=== PATIENT | male | born 1985 | race Caucasian/White ===

== ENCOUNTER 2016-10-19 06:14 | Emergency (ER) | payer BC, OTHER ==
[2016-10-19 06:19] VITALS: BP 135/89; PULSE 83; RESP 16; TEMP 98.6
[2016-10-19] MEDS ORDERED: PROPARACAINE 0.5% OPHTH DROPS 15 ML BTL ONE (06:21)
[2016-10-19] MEDS ORDERED: TOBRAMYCIN 0.3% OPHTH OINT 3.5 GM TUBE RIGHT EYE STA (06:31)
--- NOTE | 2016-10-19 06:31 | ED ---
General Adult HPI - General Chief complaint: ENT Stated complaint: Foreign body in eye, [facility] Time Seen by Provider: 10/19/16 06:15 Source: patient, RN notes reviewed Mode of arrival: ambulatory Limitations: no limitations - History of Present Illness Initial comments: This is a 31-year-old male presents to the emergency department complaining that he thinks she is form body in his right eye. Patient states at work he was blown off some equipment a felt something go into his right eye. Patient states she rinsed it for quite a long time but even after hours after rinsing if he continued to feel something in his right eye. Patient denies any blurred vision. Patient denies any direct trauma. - Related Data Home Medications Medication Instructions Recorded Confirmed No Known Home Medications [No 01/27/16 10/19/16 Known Home Medications] Allergies Allergy/AdvReac Type Severity Reaction Status Date / Time No Known Allergies Allergy Verified 10/19/16 06:18 Review of Systems ROS Statement: Those systems with pertinent positive or pertinent negative responses have been documented in the HPI. ROS Other: All systems not noted in ROS Statement are negative. Past Medical History Past Medical History: Asthma History of Any Multi-Drug Resistant Organisms: None Reported Past Surgical History: No Surgical Hx Reported Past Psychological History: No Psychological Hx Reported Smoking Status: Current some day smoker Past Alcohol Use History: Occasional Past Drug Use History: None Reported General Exam - General Exam Comments Initial Comments: GENERAL Patient is well-developed and well-nourished. Patient is in mild distress. EYES Patient's pupils are equal and round. Extraocular motion is intact. I used proparacaine and then fluorescein to check the patient's eyes I flip the eyelids did not see any foreign body. Did not see any corneal abrasion however there was a small black foreign body in the lower eyelid I removed fact with a Q -tip. SKIN Unremarkable NEURO The patient is alert and oriented 3 PYSCH Patient has normal interpersonal interactions. Limitations: no limitations Course Vital Signs 10/19/16 06:15 Temperature 98.6 F Pulse Rate 83 Respiratory 16 Rate Blood Pressure 135/89 O2 Sat by Pulse 94 L Oximetry Disposition Clinical Impression: Foreign body of right eye Disposition: HOME SELF-CARE Instructions: Eye Foreign Body (ED) Additional Instructions: Use tobramycin ophthalmic drops 4 times a day. If pain continues patient should follow-up with an coal pipeline operator Referrals: None,Stated [Primary Care Provider] - 1-2 days Time of Disposition: 06:30
== END 2016-10-19 06:54 | disposition home or self-care (01) ==
LOC: EC 06:14
DX: T15.11XA Foreign body in conjunctival sac, right eye, initial encounter (principal); F17.200 Nicotine dependence, unspecified, uncomplicated; Y93.89 Activity, other specified; Y99.0 Civilian activity done for income or pay; Y92.69 Other specified industrial and construction area as the place of occurrence of the external cause
CPT/HCPCS: 65205; 99283

== ENCOUNTER 2022-05-30 12:54 | Emergency (ER) | payer BC, OTHER ==
[2022-05-30 13:10] VITALS: BP 158/98; PULSE 79; RESP 18; TEMP 97.8
[2022-05-30] MEDS ORDERED: APIXABAN 5 MG TAB PO STA (13:14)
--- NOTE | 2022-05-30 13:18 | ED ---
Extremity Problem HPI - General Chief complaint: Extremity Problem,Nontraumatic Stated complaint: DVT/sent from lab Time Seen by Provider: 05/30/22 13:16 Source: patient, RN notes reviewed Mode of arrival: ambulatory Limitations: no limitations - History of Present Illness Initial comments: 36-year-old male presents emergency from chief complaint of left calf pain. Patient had X-Ray Showing Acute DVT. Patient States He's Had Some Discomfort Last Couple Weeks He Denies Any Chest Pain Shortness Breath or Exertional Shortness Breath Palpitations. Patient Has Meant That He Started to a Heavy Smoker He Denies Any Long Distance Traveling Denies Any Family History of Clotting Disorders. Patient Denies Significant Swelling States That There Is Mild Swelling or More Pain with Movement. - Related Data Previous Rx's Medication Instructions Recorded Apixaban [Eliquis Starter Pack 0 mg PO DIRECTED 30 Days #1 05/30/22 (for VTE)] packet Allergies Allergy/AdvReac Type Severity Reaction Status Date / Time No Known Allergies Allergy Verified 05/30/22 13:09 Review of Systems ROS Statement: Those systems with pertinent positive or pertinent negative responses have been documented in the HPI. ROS Other: All systems not noted in ROS Statement are negative. Past Medical History Past Medical History: Asthma History of Any Multi-Drug Resistant Organisms: None Reported Past Surgical History: No Surgical Hx Reported Past Psychological History: No Psychological Hx Reported Smoking Status: Current every day smoker Past Alcohol Use History: Rare Past Drug Use History: Marijuana General Exam Limitations: no limitations General appearance: alert, in no apparent distress Head exam: Present: atraumatic, normocephalic, normal inspection Eye exam: Present: normal appearance, PERRL, EOMI. Absent: scleral icterus, conjunctival injection, periorbital swelling ENT exam: Present: normal exam, normal oropharynx, mucous membranes moist Neck exam: Present: normal inspection. Absent: tenderness, meningismus, lymphadenopathy Respiratory exam: Present: normal lung sounds bilaterally. Absent: respiratory distress, wheezes, rales, rhonchi, stridor Cardiovascular Exam: Present: regular rate, normal rhythm, normal heart sounds. Absent: systolic murmur, diastolic murmur, rubs, gallop, clicks Extremities exam: Present: calf tenderness, other (Pulses are palpable lower extremity, mild swelling left) Course Vital Signs 05/30/22 13:07 Temperature 97.8 F Pulse Rate 79 Respiratory 18 Rate Blood Pressure 158/98 O2 Sat by Pulse 97 Oximetry Medical Decision Making - Medical Decision Making Was pt. sent in by a medical professional or institution (, BRENDAN, RN RECRUITMENT, urgent care, hospital, or [facility]...) When possible be specific @ -PCP Did you speak to anyone other than the patient for history (EMS, parent, family, police, friend...)? What history was obtained from this source @ -[No] Did you review nursing and triage notes (agree or disagree)? Why? @ -[I reviewed and agree with nursing and triage notes] Were old charts reviewed (outside hosp., previous admission, EMS record, old EKG, old radiological studies, urgent care reports/EKG's, [facility] records)? Report findings @ -[No old charts were reviewed] Differential Diagnosis (chest pain, altered mental status, abdominal pain women, abdominal pain men, vaginal bleeding, weakness, fever, dyspnea, syncope, headache, dizziness, GI bleed, back pain, seizure, CVA, palpatations, mental health)? @ -DVT, superficial thrombophlebitis, calf Strain, this list is not all- inclusive EKG interpreted by me (3pts min.). @ -[None] X-rays interpreted by me (1pt min.). @ -[None done] CT interpreted by me (1pt min.). @ -[None done] U/S interpreted by me (1pt. min.). @ -Ultrasound venous Doppler left lower extremity shows proximal calf and popliteal DVT What testing was considered but not performed or refused? (CT, X-rays, U/S, labs)? Why? @ -Considered CT of the chest the patient has no complaints of chest pain shortness breath palpitations, tachycardia or hypoxia What meds were considered but not given or refused? Why? @ -[None] Did you discuss the management of the patient with other professionals (professionals i.e. , BRENDAN, RN RECRUITMENT, lab, RT, psych nurse, delinquency prevention social worker, auto motor mechanic, teacher, traffic maintenance officer, case resource manager)? Give summary @ -[No] Was smoking cessation discussed for >3mins.? @ -I discussed smoking cessation for greater than 3 minutes. The risk of smoking were discussed with the patient including but not limited to risks of cancer, stroke, coronary artery disease and COPD. Also discussed with patient were multiple methods of quitting smoking. Lastly we discussed the financial cost of smoking. Was critical care preformed (if so, how long)? @ -[No] Were there social determinants of health that impacted care today? How? (Homelessness, low income, unemployed, alcoholism, drug addiction, transportation, low edu. Level, literacy, decrease access to med. care, half-way, rehab)? @ -[No] Was there de-escalation of care discussed even if they declined (Discuss DNR or withdrawal of care, Hospice)? DNR status @ -[No] What co-morbidities impacted this encounter? (DM, HTN, Smoking, COPD, CAD, Cancer, CVA, ARF, Chemo, Hep., AIDS, mental health diagnosis, sleep apnea, morbid obesity)? @ -[Smoking] Was patient admitted / discharged? Hospital course, mention meds given and route, prescriptions, significant lab abnormalities, going to OR and other pertinent info. @ -Discharged - patient has evidence of DVT the popliteal region patient started L course he has no chest complaints we did have a long discussion regarding his symptoms, return parameters including injury been on for better he is advised follow-up PCP and hematology. Patient and family agree to plan. Undiagnosed new problem with uncertain prognosis? @ -[yes] Drug Therapy requiring intensive monitoring for toxicity (Heparin, Nitro, Insulin, Cardizem)? @ -[No] Were any procedures done? @ -[No] Diagnosis/symptom? @ -Left leg DVT Acute, or Chronic, or Acute on Chronic? @ -acute Uncomplicated (without systemic symptoms) or Complicated (systemic symptoms)? @ -uncomplicated Side effects of treatment? @ -bleeding Exacerbation, Progression, or Severe Exacerbation? @ -[No] Poses a threat to life or bodily function? How? (Chest pain, USA, PA, pneumonia, PE, COPD, DKA, ARF, appy, cholecystitis, CVA, Diverticulitis, Homicidal, Suicidal, threat to staff... and all critical care pts) @ -yes patient has DVT with always probability of PE or further injury. Disposition Clinical Impression: Deep vein thrombosis (DVT) of upper extremity Disposition: HOME SELF-CARE Condition: Stable Instructions (If sedation given, give patient instructions): Deep Vein Thrombosis (ED) Additional Instructions: Please return to the Emergency Department if symptoms worsen or any other concerns. Prescriptions: Apixaban [Eliquis Starter Pack (for VTE)] 0 mg PO DIRECTED 30 Days #1 packet Is patient prescribed a controlled substance at d/c from ED?: No Referrals: Lashanda Stinson MD [Primary Care Provider] - 1-2 days Kieran Stroud MD [STAFF PHYSICIAN] - 1-2 days Time of Disposition: 13:17
== END 2022-05-30 13:53 | disposition home or self-care (01) ==
LOC: EC 12:54
DX: I82.622 Acute embolism and thrombosis of deep veins of left upper extremity (principal); J45.909 Unspecified asthma, uncomplicated; F17.200 Nicotine dependence, unspecified, uncomplicated; F12.90 Cannabis use, unspecified, uncomplicated
CPT/HCPCS: 99282

== ENCOUNTER → 2022-05-30 | Outpatient (CLI) | payer BC ==
--- NOTE | 2022-05-30 12:53 | US ---
EXAMINATION TYPE: US venous doppler duplex LE RT DATE OF EXAM: 05/30/2022 12:38 PM COMPARISON: NONE CLINICAL HISTORY: M79.661 Pain in right leg R22.41 Swelling RLE. 3 weeks of increasing right calf rodolfo n and swelling, no previous dvt SIDE PERFORMED: right TECHNIQUE: The lower extremity deep venous system is examined utilizing real time linear array sonog latia with graded compression, doppler sonography and color-flow sonography. VESSELS IMAGED: Common Femoral Vein Deep Femoral Vein Greater Saphenous Vein * Femoral Vein Popliteal Vein Small Saphenous Vein * Proximal Calf Veins (* superficial vessels) Right Leg: Hyperechoic thrombosis in the right pop vein from mid to prox calf. Results called to office and given to Adriana at the time of the exam. Per office the patient was direct ed to the ER for follow up care. IMPRESSION: Right popliteal vein deep vein thrombosis extending to the calf vessels.
== END | disposition home or self-care (01) ==
LOC: RADUSWWP 11:54
PROVIDERS: ATTEND Internal Medicine
DX: R22.41 Localized swelling, mass and lump, right lower limb (principal); M79.661 Pain in right lower leg; I82.431 Acute embolism and thrombosis of right popliteal vein

== ENCOUNTER → 2022-09-28 | Outpatient (CLI) | payer OTHER ==
--- NOTE | 2022-09-28 11:36 | US ---
EXAMINATION TYPE: US venous doppler duplex LE BI DATE OF EXAM: 09/28/2022 11:17 AM COMPARISON: Right lower extremity venous ultrasound May 30, 2022 CLINICAL INDICATION: Male, 37 years old with history of I82.5Z9 DEEP VEIN THROMBOSIS OF LOWER EXTREMI TIES; Pt states leg pain, pt has h/o DVT right leg in May, currently not on blood thinners SIDE PERFORMED: Bilateral TECHNIQUE: The lower extremity deep venous system is examined utilizing real time linear array sonog latia with graded compression, doppler sonography and color-flow sonography. VESSELS IMAGED: Common Femoral Vein Deep Femoral Vein Greater Saphenous Vein * Femoral Vein Popliteal Vein Small Saphenous Vein * Proximal Calf Veins (* superficial vessels) Right Leg: Negative for DVT, prior DVT appeared resolved Left Leg: Negative for DVT Grayscale, color doppler, spectral doppler imaging performed of the deep veins of the bilateral lower extremities. There is normal flow, compressibility, vascular waveforms on today's study. IMPRESSION: No acute DVT on today's study in either lower extremity.
== END | disposition home or self-care (01) ==
LOC: RADUSWWP 10:49
PROVIDERS: ATTEND Internal Medicine Hematology & Oncology
DX: I82.5Z9 Chronic embolism and thrombosis of unspecified deep veins of unspecified distal lower extremity (principal)
CPT/HCPCS: 93970

== ENCOUNTER 2023-07-19 04:08 | Emergency (ER) | payer OTHER ==
[2023-07-19 04:30] VITALS: TEMP 97.4
--- NOTE | 2023-07-19 04:49 | ED ---
General Adult HPI - General Source: patient, EMS Mode of arrival: EMS Limitations: no limitations <Ruthie Campbell - Last Filed: 07/19/23 06:20> <Juarez Kelly - Last Filed: 07/19/23 08:37> - General Chief complaint: Extremity Injury, Lower Stated complaint: Poss DVT Time Seen by Provider: 07/19/23 04:17 - History of Present Illness Initial comments: 37-year-old male presenting to the ER via EMS from senior care. Patient reports a history of DVT that was believed to be provoked by COVID. Patient reports has been off anticoagulation for about 6 months. Patient reports he is felt pressure and pinching in his right lower extremity that similar to previous DVT. He is noted that this leg is swollen. (Ruthie Campbell) - Related Data Previous Rx's Medication Instructions Recorded Apixaban [Eliquis Starter Pack 0 mg PO DIRECTED 30 Days #1 05/30/22 (for VTE)] packet Allergies Allergy/AdvReac Type Severity Reaction Status Date / Time No Known Allergies Allergy Verified 05/30/22 13:09 Review of Systems ROS Other: All systems not noted in ROS Statement are negative. <Ruthie Campbell - Last Filed: 07/19/23 06:20> ROS Other: All systems not noted in ROS Statement are negative. <Juarez Kelly - Last Filed: 07/19/23 08:37> ROS Statement: Those systems with pertinent positive or pertinent negative responses have been documented in the HPI. Past Medical History Past Medical History: Asthma, Deep Vein Thrombosis (DVT), Hypertension History of Any Multi-Drug Resistant Organisms: None Reported Past Surgical History: No Surgical Hx Reported Past Psychological History: No Psychological Hx Reported Smoking Status: Current every day smoker Past Alcohol Use History: Rare Past Drug Use History: Marijuana <Ruthie Campbell - Last Filed: 07/19/23 06:20> General Exam Limitations: no limitations Head exam: Present: atraumatic Eye exam: Present: normal appearance, PERRL ENT exam: Present: normal exam Neck exam: Present: normal inspection Respiratory exam: Absent: respiratory distress Cardiovascular Exam: Present: regular rate, tachycardia GI/Abdominal exam: Present: soft. Absent: distended Rectal exam: Present: deferred Extremities exam: Present: full ROM, normal capillary refill, calf tenderness. Absent: pedal edema Back exam: Present: full ROM Neurological exam: Present: alert, oriented X3 Psychiatric exam: Present: normal affect Skin exam: Present: warm, dry <Ruthie Campbell - Last Filed: 07/19/23 06:20> Course Vital Signs 07/19/23 07/19/23 07/19/23 04:09 04:14 05:31 Temperature 97.4 F L Pulse Rate 115 H 116 H 97 Respiratory 20 16 20 Rate Blood Pressure 146/90 146/90 137/93 O2 Sat by Pulse 100 94 L 94 L Oximetry 07/19/23 07/19/23 06:31 08:00 Temperature Pulse Rate 103 H 95 Respiratory 20 18 Rate Blood Pressure 132/89 129/87 O2 Sat by Pulse 95 92 L Oximetry Medical Decision Making - Lab Data Result diagrams: 07/19/23 04:53 07/19/23 04:53 <Ruthie Campbell - Last Filed: 07/19/23 06:20> - Lab Data Result diagrams: 07/19/23 04:53 07/19/23 04:53 <Juarez Kelly - Last Filed: 07/19/23 08:37> - Medical Decision Making Was pt. sent in by a medical professional or institution (, PA, ROLE PLAYER, urgent care, hospital, or long term...) When possible be specific @ -[No] Did you speak to anyone other than the patient for history (EMS, parent, family, police, friend...)? What history was obtained from this source @ -fare enforcement officer at bedside Did you review nursing and triage notes (agree or disagree)? Why? @ -[I reviewed and agree with nursing and triage notes] Were old charts reviewed (outside hosp., previous admission, EMS record, old EKG, old radiological studies, urgent care reports/EKG's, long term records)? Report findings @ -[No old charts were reviewed] Differential Diagnosis (chest pain, altered mental status, abdominal pain women, abdominal pain men, vaginal bleeding, weakness, fever, dyspnea, syncope, headache, dizziness, GI bleed, back pain, seizure, CVA, palpatations, mental health)? @ -Differential includes DVT, cellulitis, dependent edema EKG interpreted by me (3pts min.). @ -[As above] X-rays interpreted by me (1pt min.). @ -[None done] CT interpreted by me (1pt min.). @ -[None done] U/S interpreted by me (1pt. min.). @ -[None done] What testing was considered but not performed or refused? (CT, X-rays, U/S, labs)? Why? @ -[None] What meds were considered but not given or refused? Why? @ -[None] Did you discuss the management of the patient with other professionals (professionals i.e. , PA, ROLE PLAYER, lab, RT, psych nurse, adoption social worker, audioprosthologist, teacher, boat officer, case management coordinator)? Give summary @ -[No] Was smoking cessation discussed for >3mins.? @ -[No] Was critical care preformed (if so, how long)? @ -[No] Were there social determinants of health that impacted care today? How? ( Homelessness, low income, unemployed, alcoholism, drug addiction, transportation, low edu. Level, literacy, decrease access to med. care, senior care, rehab)? @ -[No] Was there de-escalation of care discussed even if they declined (Discuss DNR or withdrawal of care, Hospice)? DNR status @ -[No] What co-morbidities impacted this encounter? (DM, HTN, Smoking, COPD, CAD, Cancer, CVA, ARF, Chemo, Hep., AIDS, mental health diagnosis, sleep apnea, morbid obesity)? @ -[None] Was patient admitted / discharged? Hospital course, mention meds given and route, prescriptions, significant lab abnormalities, going to OR and other pertinent info. @ -[hospital course] Undiagnosed new problem with uncertain prognosis? @ -[No] Drug Therapy requiring intensive monitoring for toxicity (Heparin, Nitro, Insulin, Cardizem)? @ -[No] Were any procedures done? @ -[No] Diagnosis/symptom? @ -[default] Acute, or Chronic, or Acute on Chronic? @ -[default] Uncomplicated (without systemic symptoms) or Complicated (systemic symptoms)? @ -[default] Side effects of treatment? @ -[No] Exacerbation, Progression, or Severe Exacerbation? @ -[No] Poses a threat to life or bodily function? How? (Chest pain, USA, CT, pneumonia, PE, COPD, DKA, ARF, appy, cholecystitis, CVA, Diverticulitis, Homicidal, Suicidal, threat to staff... and all critical care pts) @ -[No] (Ruthie Campbell) Ultrasound interpreted by myself without evidence of DVT. Patient reevaluated and updated. Patient will be discharged and recommend follow-up with primary care physician. Diagnosis: Leg pain, acute (Juarez Kelly) - Lab Data Lab Results 07/19/23 07/19/23 07/19/23 Range/Units 04:53 04:53 04:53 WBC 13.3 H (3.8-10.6) k/uL RBC 5.16 (4.30-5.90) m/uL Hgb 15.4 (13.0-17.5) gm/dL Hct 44.1 (39.0-53.0) % MCV 85.4 (80.0-100.0) fL MCH 29.8 (25.0-35.0) pg MCHC 34.9 (31.0-37.0) g/dL RDW 12.7 (11.5-15.5) % Plt Count 211 (150-450) k/uL MPV 8.4 Neutrophils % 76 % Lymphocytes % 19 % Monocytes % 4 % Eosinophils % 0 % Basophils % 1 % Neutrophils # 10.0 H (1.3-7.7) k/uL Lymphocytes # 2.5 (1.0-4.8) k/uL Monocytes # 0.6 (0-1.0) k/uL Eosinophils # 0.0 (0-0.7) k/uL Basophils # 0.1 (0-0.2) k/uL D-Dimer 0.30 (<0.60) mg/L FEU Sodium 141 (137-145) mmol/L Potassium 4.1 (3.5-5.1) mmol/L Chloride 108 H (98-107) mmol/L Carbon Dioxide 18 L (22-30) mmol/L Anion Gap 15 mmol/L BUN 12 (9-20) mg/dL Creatinine 1.16 (0.66-1.25) mg/dL Est GFR (CKD-EPI)AfAm >90 (>60 ml/min/1.73 sqM) Est GFR (CKD-EPI)NonAf 81 (>60 ml/min/1.73 sqM) Glucose 135 H (74-99) mg/dL Calcium 9.1 (8.4-10.2) mg/dL Total Bilirubin 0.5 (0.2-1.3) mg/dL AST 44 (17-59) U/L ALT 47 (4-49) U/L Alkaline Phosphatase 72 (38-126) U/L Total Protein 7.8 (6.3-8.2) g/dL Albumin 4.8 (3.5-5.0) g/dL Disposition <Ruthie Campbell - Last Filed: 07/19/23 06:20> Is patient prescribed a controlled substance at d/c from ED?: No Time of Disposition: 08:37 <Juarez Kelly - Last Filed: 07/19/23 08:37> Clinical Impression: Leg pain Disposition: HOME SELF-CARE Condition: Stable Instructions (If sedation given, give patient instructions): Leg Pain (ED) Additional Instructions: [id number] Tylenol or Motrin as needed. Please follow-up with primary care physician in the next day or 2 for recheck. Return for increased pain, swelling, worsening or changing symptoms or other concerns. Referrals: Saji Morse MD [STAFF PHYSICIAN] - 1-2 days
[2023-07-19 04:59] LABS: Basophils # (A) 0.1 k/uL (0-0.2); Basophils % (A) 1 %; Eosinophils % (A) 0 %; HCT 44.1 % (39.0-53.0); HGB 15.4 gm/dL (13.0-17.5); Lymphocytes # (A) 2.5 k/uL (1.0-4.8); Lymphocytes % (A) 19 %; MCH 29.8 pg (25.0-35.0); MCHC 34.9 g/dL (31.0-37.0); MCV 85.4 fL (80.0-100.0); Mean Platelet Volume 8.4; Monocytes # (A) 0.6 k/uL (0-1.0); Monocytes % (A) 4 %; Neutrophils % (A) 76 %; Platelet Count 211 k/uL (150-450); RBC 5.16 m/uL (4.30-5.90); RDW 12.7 % (11.5-15.5); WBC 13.3 k/uL (3.8-10.6)
[2023-07-19 05:08] LABS: ALT 47 U/L (4-49); AST 44 U/L (17-59); African American GFR (CKD) >90 (>60 ml/min/1.73 sqM); Albumin 4.8 g/dL (3.5-5.0); Alkaline Phosphatase 72 U/L (38-126); Anion Gap 15 mmol/L; Blood Urea Nitrogen 12 mg/dL (9-20); Calcium 9.1 mg/dL (8.4-10.2); Carbon Dioxide 18 mmol/L (22-30); Chloride 108 mmol/L (98-107); Glucose 135 mg/dL (74-99); Non-African American GFR(CKD) 81 (>60 ml/min/1.73 sqM); Potassium 4.1 mmol/L (3.5-5.1); Sodium 141 mmol/L (137-145); Total Bilirubin 0.5 mg/dL (0.2-1.3); Total Protein 7.8 g/dL (6.3-8.2)
[2023-07-19] MEDS: ACETAMINOPHEN TAB 500 MG TAB PO STA (05:59)
[2023-07-19] MEDS: SODIUM CHLORIDE 0.9% 1,000 ML IV ONE (05:59)
--- NOTE | 2023-07-19 08:30 | US ---
EXAMINATION TYPE: US venous doppler duplex LE RT DATE OF EXAM: 07/19/2023 7:27 AM COMPARISON: None HISTORY: Male, 37 years old with history of edema, history of dvt; Right leg pain SIDE PERFORMED: Right TECHNIQUE: The lower extremity deep venous system is examined utilizing real time linear array sonog latia with graded compression, doppler sonography and color-flow sonography. VESSELS IMAGED: Common Femoral Vein Deep Femoral Vein Greater Saphenous Vein * Femoral Vein Popliteal Vein Small Saphenous Vein * Proximal Calf Veins (* superficial vessels) Right Leg: Negative for DVT IMPRESSION: No evidence for DVT within the right lower extremity imaged from the groin to the upper calf.
[2023-07-19 08:58] VITALS: BP 138/89; PULSE 96; RESP 16
[2023-07-19] MEDS: IBUPROFEN 600 MG TAB PO STA (09:37)
== END 2023-07-19 09:51 | disposition home or self-care (01) ==
LOC: EC 04:08
DX: M79.604 Pain in right leg (principal); I10 Essential (primary) hypertension; J45.909 Unspecified asthma, uncomplicated; F17.200 Nicotine dependence, unspecified, uncomplicated; F12.90 Cannabis use, unspecified, uncomplicated; Z86.718 Personal history of other venous thrombosis and embolism
CPT/HCPCS: 36415; 80053; 85025; 85379; 96360; 99285